=== PATIENT | female | born 1995 | race Caucasian/White ===

== ENCOUNTER 2017-05-29 23:35 | Emergency (ER) | payer MEDICAID ==
[~2017-05-29] VITALS: Ht 175.3 cm; Wt 75.0 kg
[2017-05-29 23:36] VITALS: BP 118/61; PULSE 67; RESP 16; TEMP 99.1; O2SAT 99
[2017-05-29] MEDS ORDERED: ALBUAER3 INH (23:57)
[2017-05-30] MEDS ORDERED: SODIUM CHLORIDE 0.9% FLUSH 10 ML FLUSH IV FLUSH PRN (00:15)
--- NOTE | 2017-05-30 00:15 | PD ---
HPI Chief Complaint: Abdominal Pain Time Seen by Provider: 00:08 Travel History International Travel<30 days: No Contact w/Intl Traveler<30days: No Traveled to known affect area: No History of Present Illness HPI 21-year-old female here for evaluation of abdominal pain and vaginal discharge. Symptoms started about 1.5 weeks ago. She states about 2 weeks ago she had unprotected sex for the first time. Abdominal pain is lower, described as pressure, moderate, constant, worse with movements. She denies fevers or chills. No nausea, vomiting, or diarrhea. She has been having dysuria and increased urinary frequency. PFSH Past Medical History Asthma: Yes (ALBUTEROL INHALER) Medical other: Yes (FATTY TISSUE RIGHT BREAST) Tetanus Vaccination: Unknown Influenza Vaccination: Yes ?: Unknown Past Surgical History Other Surgery: Yes ("FATTY TISSUE REMOVAL RIGHT BREAST") Social History Alcohol Use: No Tobacco Use: No Substance Use: No Allergies-Medications (Allergen,Severity, Reaction): Coded Allergies: No Known Allergies (Unverified , 05/29/17) Reported Meds & Prescriptions Reported Meds & Active Scripts Active Reported Proair Hfa 8.5 GM Inh (Albuterol Sulfate) 90 Mcg/Act Aer 2 Puff INH Q4-6H PRN 108 mcg/actuation Review of Systems Except as stated in HPI: all other systems reviewed are Neg Physical Exam Narrative GENERAL: Well-developed, well-nourished, comfortable, no acute distress. SKIN: Focused skin assessment warm/dry. HEAD: Atraumatic. Normocephalic. EYES: Pupils equal and round. No scleral icterus. No injection or drainage. ENT: Mucous membranes pink and moist. NECK: Trachea midline. No JVD. CARDIOVASCULAR: Regular rate and rhythm. No murmur appreciated. RESPIRATORY: No accessory muscle use. Clear to auscultation. Breath sounds equal bilaterally. GASTROINTESTINAL: Abdomen soft, nondistended. Moderate suprapubic, right lower quadrant, and left lower quadrant tenderness without peritoneal signs. Rest of abdomen is soft and nontender. Normal bowel sounds. 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 No clubbing. No cyanosis. No edema. NEUROLOGICAL: Awake and alert. No obvious cranial nerve deficits. Motor grossly within normal limits. Normal speech. PSYCHIATRIC: Appropriate mood and affect; insight and judgment normal. Data Data Last Documented VS Vital Signs Date Time Temp Pulse Resp B/P (MAP) Pulse Ox O2 Delivery O2 Flow Rate FiO2 05/29/17 23:36 99.1 67 16 118/61 (80) 99 Room Air Orders Orders Complete Blood Count With Diff (05/30/17 00:11) Comprehensive Metabolic Panel (05/30/17 00:11) Lipase (05/30/17 00:11) Prothrombin Time / Inr (Pt) (05/30/17:11) Act Partial Throm Time (Ptt) (05/30/17:11) Urinalysis - C+S If Indicated (05/30/17:11) Iv Access Insert/Monitor (05/30/17 00:11) Ecg Monitoring (05/30/17:11) Oximetry (05/30/17:11) Sodium Chloride 0.9% Flush (Ns Flush) (05/30/17 00:15) Ed Urine Pregnancytest Poc (05/30/17 00:11) Gc And Chlamydia Pcr (05/30/17:11) Wet Prep Profile (05/30/17:11) Diatrizoate Liq ( Gastroview Liq) (05/30/17 00:19) Oral Contrast - Adult (05/30/17 00:22) MDM Medical Decision Making Medical Screen Exam Complete: Yes Emergency Medical Condition: Yes Differential Diagnosis PID, TOA, ovarian cyst, ovarian torsion less likely, , ectopic , cystitis, UTI, appendicitis, colitis Narrative Course Urine is positive. After finding out that her urine is positive, the patient states that she wants to go home as she has school tomorrow. She is declining to have any other tests performed including lab studies and pelvic exam. I told her that because she is having abdominal pain with , ectopic needs to be ruled out and fully explained with an ectopic is to her as well as all the dangers of an ectopic . Patient states she still would like to go home and come back at another time. She has a capacity to make the decision to leave AMA. She was told that she could return to the emergency department at any time and should return should she have worsening symptoms or any other concerns. I'll give her the information to the [facility] to follow-up with this week. AMA: The risks of leaving against medical advice without further evaluation treatment were discussed with the patient. These risks include cardiac dysfunction, cardiac dysrhythmia, possible heart attack, possible stroke or . The patient indicated understanding of these risks and appeared to have the capacity to make this decision. Diagnosis Primary Impression: Left against medical advice Additional Impression: Qualified Codes: Z34.90 - Encounter for supervision of normal , unspecified, unspecified trimester Referrals: [facility] 1 day Additional Instructions: Follow-up in the [facility] tomorrow. Return to the emergency department for worsening symptoms or any other concerns as discussed. Disposition: AGAINST MEDICAL ADVICE Condition: Sky Barton MD May 30, 2017 00:15
[2017-05-30] MEDS ORDERED: DIATRIZOATE MEGLUM/DIATRIZOATE SOD 9 ML CUP ONE (00:19)
== END 2017-05-30 01:18 | disposition left against medical advice (07) ==
LOC: NEPD 23:35
DX: R10.9 Unspecified abdominal pain (principal); J45.909 Unspecified asthma, uncomplicated; R30.0 Dysuria; R35.0 Frequency of micturition; Z34.91 Encounter for supervision of normal pregnancy, unspecified, first trimester; Z3A.01 Less than 8 weeks gestation of pregnancy
CPT/HCPCS: 84703; 99283; Q9963